=== PATIENT | female | born 1950 | race Caucasian/White ===

== ENCOUNTER 2019-03-08 05:28 | Observation (INO) ==
[2019-03-08] MEDS ORDERED: Ondansetron 4 MG/2 ML VIAL IVP PRN ×2 (08:12→22:56)
[2019-03-08] MEDS ORDERED: 0.9 % Sodium Chloride 1,000 ML IVC SCH ×2 (08:15→22:56)
[2019-03-08] MEDS ORDERED: cefOXitin 2,000 MG in Water for inj. (sterile) 20 ML IVP SCH (16:00)
[2019-03-08] MEDS ORDERED: cefOXitin 1,000 MG, 0.9 % Sodium Chloride 1,000 ML IR ONE ×2 (16:35→22:56)
[2019-03-08] MEDS ORDERED: CefOXitin 1,000 MG VIAL ONE (17:31)
[2019-03-08] MEDS ORDERED: *HR* FentaNYL (PF) 100 MCG/2 ML VIAL ONE (17:31)
[2019-03-08] MEDS ORDERED: *HR* Midazolam HCl 2 MG/2 ML VIAL ONE (17:31)
[2019-03-08] MEDS ORDERED: *HR* Propofol 200 MG/20 ML VIAL IVP ONE (17:32)
[2019-03-08] MEDS ORDERED: Lidocaine -MPF 2% 2 ML VIAL ONE (17:33)
[2019-03-08] MEDS ORDERED: *HR* Rocuronium Bromide 50 MG/5 ML VIAL ONE (17:33)
[2019-03-08] MEDS ORDERED: Lidocaine -MPF 4% 5 ML AMPUL ONE (17:34)
[2019-03-08] MEDS ORDERED: Acetaminophen IV 1,000 MG/100 ML INFUS..BTL ONE (17:42)
[2019-03-08] MEDS ORDERED: *HR* Succinylcholine 200 MG/10 ML VIAL IVP ONE (18:12)
[2019-03-08] MEDS ORDERED: Ondansetron 4 MG/2 ML VIAL ONE (18:22)
[2019-03-08] MEDS ORDERED: EPHEDrine 50 MG/ML VIAL ONE (18:22)
[2019-03-08] MEDS ORDERED: Dexamethasone 4 MG/ML VIAL ONE (18:22)
[2019-03-08] MEDS ORDERED: Ketorolac 30 MG/ML VIAL ONE (18:50)
[2019-03-08] MEDS ORDERED: Neostigmine Methylsulfate 3 MG/3 ML SYRINGE ONE (18:51)
[2019-03-08] MEDS ORDERED: *HR* Promethazine 25 MG/ML VIAL IVP PRN (19:23)
[2019-03-08] MEDS ORDERED: *HR* OxyCODONE Immed Rel 5 MG TABLET PO PRN (19:23)
[2019-03-08] MEDS ORDERED: Ondansetron 4 MG/2 ML VIAL IVP ONE (19:23)
[2019-03-08] MEDS ORDERED: *HR* Meperidine 25 MG/ML SYRINGE IVP PRN (19:23)
[2019-03-08] MEDS ORDERED: *HR* HYDROmorphone (PF) 1 MG/ML SYRINGE IVP PRN (19:23)
[2019-03-09] MEDS: cefOXitin 2,000 MG in Water for inj. (sterile) 20 ML IVP SCH ×2 (00:22→09:04)
[2019-03-09 07:16] VITALS: BP 100/63
== END 2019-03-09 10:53 | disposition home or self-care (01) ==
LOC: 3BNU
PROVIDERS: ADMIT Surgery; ATTEND Surgery